=== PATIENT | male | born 1945 | race Caucasian/White ===

== ENCOUNTER → 2018-10-25 | Outpatient (CLI) | payer OTHER ==
[~2018-10-25] VITALS: Ht 185.4 cm; Wt 93.0 kg
[~2018-10-25] MED LIST: ALEVE220 MG PO; AZELASTINE137 MCG/0. NASAL; FENOFIBRATE160 MG PO; FLONASE 0.05%50 MCG NASAL; NORVASC5 MG PO; OMEPRAZOLE 20 M20 M1 PO
[2018-10-25 13:07] VITALS: BP 129/85
--- NOTE | 2018-10-25 14:33 | NUR ---
Pain Clinic Assessment: 1. History of Osteoarthritis: History of Rheumatoid Arthritis: 2. Height: 6 ft. 1 in. 185.4 cm. Weight: 205.0 lb. oz. 92.988 kg. Patient's BMI: 27.1 3. Vital Signs: BP: 129/85 Pulse: 70 Resp: 14 Temp: 02 Sat: 100 ECG Mon: 4. Pain Intensity: 2 5. Fall Risk: Dizziness: N Needs help standing or walking: N Fallen in the last 3 months: N Fall risk comments: 6. Patient on Blood Thinner: None 7. History of Hypertension: Y 8. Opioid Therapy greater than 6 weeks: N Opiate Contract Signed: 9. Risk Assessment Tool Provided: 10. Functional Assessment Tool: 11. Recreational Drug Use: Never Drug Type: Tobacco Use: Former Smoker Tobacco Type: Cigarettes Amount or Packs/day: 1/2- 1 1/2 How Many Years: 45 Alcohol Use: Yes Frequency: Weekly Quant: 2-3/WEEK
--- NOTE | 2018-11-05 07:40 | HPC ---
[facility] [place] [address] PAIN MANAGEMENT CONSULTATION Name: JEREMIAH WATTS Room #: REG JODIE Gallo.#: [id number] Admission: 10/25/18 ������������������ Attend Phys: Kwame Silvestre MD Discharge: ������������������ Date of : 45 Report #: [id number] THIS REPORT FOR: //name// CC: Vno Silvestre DATE OF SERVICE: 10/25/2018 CHIEF COMPLAINT: Bilateral leg pain and low back pain. HISTORY OF PRESENT ILLNESS: The patient is a pleasant, healthy fit appearing 73-year-old, who Dr. Garay has asked me to see today for low back pain with radiculopathy. Pain began about 6 months ago. He has had an episode of this in the past. This episode has been persistent now despite his exercise, which includes walking up to 3 miles and gentle Cruzito flexion exercises at home. He describes it as an aching in his back, radiating into the posterior thigh, made worse with activity at this point and is an aching sensation scored as a 6/10 today, maximum pain is a 9/10. MEDICATIONS: Amlodipine, fenofibrate, fluticasone, Astelin, omeprazole, Aleve. ALLERGIES: None. PAST MEDICAL HISTORY: Mild hypertension. He has some orthopedic injuries including right shoulder, which was treated with an arthroscopic surgery in 2012 and a right knee arthroscopic surgery in 2008. He has also had some left knee issues and will be following up with an orthopedic surgeon for that. Otherwise, he has been in excellent health his entire life. SOCIAL HISTORY: He denies use of tobacco, drinks alcohol 2-3 times a week in a social setting. He retired in 2014. He has remained physically active and independent. REVIEW OF SYSTEMS: Positive for some tinnitus, varicose veins and he has some reported sexual difficulties typical of a 73-year-old. PHYSICAL EXAMINATION: VITAL SIGNS: Blood pressure 129/85, heart rate 70, respirations 14, BMI is 27.1. He can independently move from sitting to standing position without difficulty. He does not need his arms to push up from the chair. He has good strength in his legs. Gait is normal. Examination of the spine reveals normal alignment, perhaps a slight levoscoliosis as reported by MRI. He has minimal pain with flexion, extension, rotation, and [id number] tilt. Straight leg raising is mildly positive bilaterally, reproducing some tightness in the back of the thighs in both the sitting and supine position, but nothing further. [facility] [address] [place] [address] PAIN MANAGEMENT CONSULTATION Name: JEREMIAH WATTS Room #: REG [facility]#: [id number] Admission: 10/25/18 ������������������ Attend Phys: Kwame Silvestre MD Discharge: ������������������ Date of : 45 Report #: [id number] Strength is intact in lower extremities. Deep tendon reflexes are 2+ knees and ankles. No asymmetry is noted. MRI scan is reviewed. He has spinal stenosis at L4-L5 at 8 mm. There is neural foraminal stenosis at L4-L5 and L5-S1. There is a mild spondylolisthesis reported at L5-S1 as well. IMPRESSION: Degenerative spine disease with lumbar radiculopathy involving L4, L5, S1. Most of his symptoms seem to be more L5-S1 related. There is moderate stenosis at L3-L4, severe stenosis at L4-L5. RECOMMENDATION: I have begun with an epidural steroid injection midline at L4-L5. If he gets a good response, this is be a favorable injection for future management possibilities. I would recommend following up in 1 month. If he gets limited improvement, I would consider bilateral transforaminal epidural injections at L4-L5. The cruz here is placement of medication within the lateral recess of the spinal canal in order to provide best relief of these bypassing nerve roots. Potential risks and benefits and the procedure were described in detail to the patient using models and charts. He had an ample opportunity to ask questions. PLAN: Epidural steroid injection L4-L5 under fluoroscopic guidance. He was taken to fluoroscopic suite, placed prone. Skin prepped with ChloraPrep. Skin anesthetized over L4-L5. A 20-gauge Tuohy epidural needle advanced first attempt into the epidural space with loss of resistance technique. There was no blood or CSF aspirated. 1 mL of Omnipaque injected. Good spread of dye observed into the epidural space followed by 3 mL of 0.5% lidocaine mixed with 80 mg of triamcinolone. He tolerated the procedure well and was observed for 45 minutes and discharged with a followup visit scheduled in the pain clinic in one month. ��������������������������������������������� <ELECTRONICALLY SIGNED> ���������������������������������������� By: Kwame Silvestre MD ��������������������������������������������� 11/05/18 0740 1624 2214 Kwame Silvestre MD /nt
== END | disposition home or self-care (01) ==
LOC: PAIN 06:52
DX: M51.16 Intervertebral disc disorders with radiculopathy, lumbar region (principal); M48.061 Spinal stenosis, lumbar region without neurogenic claudication; G89.29 Other chronic pain; I10 Essential (primary) hypertension; Z98.890 Other specified postprocedural states; Z79.899 Other long term (current) drug therapy; Z87.891 Personal history of nicotine dependence

== ENCOUNTER → 2018-11-29 | Outpatient (CLI) | payer OTHER ==
[~2018-11-29] VITALS: Ht 185.4 cm; Wt 93.6 kg
--- NOTE | ~2018-11-29 | HPC ---
[facility] [address] [place] [address] PAIN MANAGEMENT CONSULTATION Name: JEREMIAH WATTS Room #: REG JODIE [place].#: [id number] Admission: 11/29/18 ������������������ Attend Phys: Kwame Silvestre MD Discharge: ������������������ Date of : 45 Report #: [id number] THIS REPORT FOR: //name// CC: Von Silvestre DATE OF SERVICE: 11/29/2018 Followup visit for lumbar radiculopathy. The patient returns to pain clinic today and is 80% better after initial epidural injection on 10/25/2018. It has now been over a month and we are getting into 6-8 weeks. We had a lengthy discussion today about his response. I spent about 20 minutes with him discussing his underlying problem; the use of an epidural injection as a pain-relieving tool, not as a cure and our philosophy of using injections periodically, both in a preemptive role as well as a treatment role for severe episodes of persistent pain. With this in mind, the epidural injection might be useful over many years. We discussed the Medicare guideline which states no more than 3 injections in a 6-month period of time. I shared with him that many of our patients get by with a single injection per year or less, some taking up to 4 a year, but it is rare to go past that in my opinion. If he continues to see good improvement, this is a tool that we can utilize going forward, particularly in light of the fact that we save x-ray pictures to show where I have injected him previously. We can often have reproducible effects by injecting him in the same location. On a PQRS review, it is positive for some arthritis. He has had arthroscopic surgery of his knees. His BMI is 27.2. He remains active. He is on no blood-thinning medications, but is under treatment by Dr. Garay for hypertension. MEDICATIONS: Have been reviewed and reconciled from the electronic medical record. He has not taken opioid medication, but has completed an opioid risk tool and would be at a low risk. SOCIAL HISTORY: He denies use of tobacco, but drinks alcohol socially. PHYSICAL EXAMINATION: GENERAL: Pleasant gentleman. VITAL SIGNS: Blood pressure 127/89, heart rate 71. He is 6 feet 1 inch, 206 pounds. MUSCULOSKELETAL: He moves easily from sitting to standing position, ambulates [facility] [address] [place] [address] PAIN MANAGEMENT CONSULTATION Name: JEREMIAH WATTS Room #: REG JODIE Bret#: [id number] Admission: 11/29/18 ������������������ Attend Phys: Kwame Silvestre MD Discharge: ������������������ Date of : 45 Report #: [id number] without antalgic features. IMPRESSION: Chronic low back pain with radiculopathy, much improved following single epidural injection. PLAN: Follow up as needed. ��������������������������������������������� ���������������������������������������� By: ��������������������������������������������� 1520 0216 Kwame Silvestre MD /nt
[2018-11-29 13:51] VITALS: BP 127/89
--- NOTE | 2018-11-29 14:00 | NUR ---
Pain Clinic Assessment: 1. History of Osteoarthritis: Not Applicable History of Rheumatoid Arthritis: Not Applicable 2. Height: 6 ft. 1 in. 185.4 cm. Weight: 206.4 lb. oz. 93.623 kg. Patient's BMI: 27.2 3. Vital Signs: BP: 127/89 Pulse: 71 Resp: 14 Temp: 02 Sat: 97 ECG Mon: 4. Pain Intensity: 0 5. Fall Risk: Dizziness: N Needs help standing or walking: N Fallen in the last 3 months: N Fall risk comments: 6. Patient on Blood Thinner: None 7. History of Hypertension: Y 8. Opioid Therapy greater than 6 weeks: N Opiate Contract Signed: 9. Risk Assessment Tool Provided: 10. Functional Assessment Tool: 11. Recreational Drug Use: Never Drug Type: Tobacco Use: Former Smoker Tobacco Type: Amount or Packs/day: How Many Years: Alcohol Use: Yes Frequency: Weekly Quant: 1
== END ==
LOC: PAIN 07:04
DX: M54.16 Radiculopathy, lumbar region (principal); Z79.899 Other long term (current) drug therapy

== ENCOUNTER → 2019-03-21 | Outpatient (CLI) | payer OTHER ==
[~2019-03-21] VITALS: Ht 185.4 cm; Wt 95.3 kg
--- NOTE | ~2019-03-21 | HPC ---
[facility] [place] [address] PAIN MANAGEMENT CONSULTATION Name: JEREMIAH WATTS Room #: REG [facility].#: [id number] Admission: 03/21/19 ������������������ Attend Phys: Kwame Silvestre MD Discharge: ������������������ Date of : 45 Report #: [id number] THIS REPORT FOR: //name// CC: Von Silvestre DATE OF SERVICE: 03/21/2019 Followup visit for lumbar radiculopathy. The patient returns to pain clinic today for repeat epidural injection. He had substantial improvement after his last injection in October. He and his will be taking a trip beginning tomorrow. They are leaving to travel up to [place]. The long ride in a car may aggravate his radiculopathy, and he would like to get an epidural before his departure. He has spinal stenosis at L4-L5. We reviewed the pathology. His good response suggests another injection may be very useful in the setting. Pain is mild at rest 2/10, but can become more severe, particularly with activity. He will be having a lot of that on this trip. PQRS REVIEW: 1. No history of osteoarthritis. 2. BMI 27.2. 3. VITAL SIGNS: Blood pressure 127/89, heart rate 71, respirations 14, O2 sat 97. 4. Pain intensity at rest is 0-2, increasing to a 5 with activity. 5. He is not a fall risk. 6. No blood thinners. 7. History of hypertension, under treatment. All medications were reviewed and reconciled. He is on amlodipine. 8. He is not on opioids. 9. No history of tobacco, but he drinks alcohol in social setting once or twice a week. PHYSICAL EXAMINATION: He moves easily from sitting to standing position, but has some mild antalgic features to his gait. Slight decrease in range of motion across the lumbosacral segment. Straight leg raising reproduces some pain radiating into both legs in the L5-S1 distribution. IMPRESSION: Lumbar radiculopathy secondary to spinal stenosis. RECOMMENDATIONS: Repeat epidural injection under fluoroscopic guidance. [facility] [address] [place] [address] PAIN MANAGEMENT CONSULTATION Name: JEREMIAH WATTS Room #: REG [facility]#: [id number] Admission: 03/21/19 ������������������ Attend Phys: Kwame Silvestre MD Discharge: ������������������ Date of : 45 Report #: [id number] PROCEDURE: He was taken to fluoroscopic suite, placed prone, skin prepped with ChloraPrep. Skin anesthetized over the L4-L5 interspace. A 20-gauge Tuohy epidural needle advanced in the epidural space with loss of resistance technique. No blood or CSF was aspirated. A 1 mL of Omnipaque was injected. Good spread of dye observed into the epidural space, this was then followed by 3 mL of 0.5% lidocaine mixed with 80 mg of triamcinolone. He tolerated the procedure well and was observed for 45 minutes and discharged. Follow up as needed. ��������������������������������������������� ���������������������������������������� By: ��������������������������������������������� 1211 1238 Kwame Silvestre MD /nt
[2019-03-21 09:18] VITALS: BP 134/87
--- NOTE | 2019-03-21 09:31 | NUR ---
Pain Clinic Assessment: 1. History of Osteoarthritis: knees History of Rheumatoid Arthritis: Not Applicable 2. Height: 6 ft. 1 in. 185.4 cm. Weight: 210.0 lb. oz. 95.256 kg. Patient's BMI: 27.7 3. Vital Signs: BP: 134/87 Pulse: 65 Resp: 14 Temp: 02 Sat: 98 ECG Mon: 4. Pain Intensity: 2 5. Fall Risk: Dizziness: N Needs help standing or walking: N Fallen in the last 3 months: N Fall risk comments: 6. Patient on Blood Thinner: None 7. History of Hypertension: Y 8. Opioid Therapy greater than 6 weeks: N Opiate Contract Signed: 9. Risk Assessment Tool Provided: low-o 10. Functional Assessment Tool: 11. Recreational Drug Use: Never Drug Type: Tobacco Use: Former Smoker Tobacco Type: Amount or Packs/day: How Many Years: Alcohol Use: Yes Frequency: Weekly Quant: 2 beers
== END | disposition home or self-care (01) ==
LOC: PAIN 08:59
DX: M54.16 Radiculopathy, lumbar region (principal); M48.061 Spinal stenosis, lumbar region without neurogenic claudication; I10 Essential (primary) hypertension; Z87.891 Personal history of nicotine dependence; Z79.899 Other long term (current) drug therapy

== ENCOUNTER → 2019-07-11 | Outpatient (CLI) | payer OTHER ==
[~2019-07-11] VITALS: Ht 185.4 cm; Wt 96.4 kg
[~2019-07-11] MED LIST changes: +LIPITOR10 MG PO
--- NOTE | ~2019-07-11 | HPC ---
[facility] [address] [address] PAIN MANAGEMENT CONSULTATION Name: JEREMIAH WATTS Room #: REG JODIE Gallo.#: [id number] Admission: 07/11/19 Attend Phys: Kwame Silvestre MD Discharge: Date of : 45 Report #: [id number] THIS REPORT FOR: //name// CC: Von Silvestre DATE OF SERVICE: 07/11/2019 Followup visit for lumbar radiculopathy. The patient returns today for repeat epidural injection. His last injection was performed in March. He has had excellent response to both of his injections. In March after his injection, he and his drove to [place] where they had a hiking vacation. He returned and found that his pain was not quite as good for as long as the injection in November. It may have been due to the long car ride. He was able to do his hiking without too much difficulty. Today, his pain is not too bad, but it has been increasing some and he is here today to repeat the injection. Injection was performed at L4-L5. Symptoms have previously been a bit more to the left and I have injected him at that level. He has spinal stenosis at L4-L5. PQRS REVIEW: Positive for mild arthritis, particularly of the knee where he has had some surgery. BMI is 28.1, blood pressure 140/91, heart rate 78, respirations 16. He is not a fall risk, is on no blood thinning medications. Dr. Garay treats him for hypertension. He is not on opioid medications, completed an opioid risk tool scoring 0 and his functional assessment score is quite good at 22/70 suggesting minimal impact of his pain on his day-to-day activities. SOCIAL HISTORY: Denies use of tobacco and drinks alcohol once or twice weekly. IMPRESSION: Chronic low back pain with radiculopathy, which has responded nicely to epidural injections. RECOMMENDATIONS: Repeat epidural injection under fluoroscopic guidance. DESCRIPTION OF PROCEDURE: He was taken to fluoroscopic suite for the injection where he was placed prone, skin prepped with ChloraPrep. Skin anesthetized over the L4-L5 interspace. A 20-gauge Tuohy epidural needle advanced first attempt in the epidural space with loss of resistance technique. There was no blood or CSF aspirated. A 1 mL of Omnipaque injected. Good spread of dye observed into the epidural space. This was then followed by 3 mL of 0.5% lidocaine mixed with [facility] [address] [place] [address] PAIN MANAGEMENT CONSULTATION Name: JEREMIAH WATTS Room #: REG [facility].#: [id number] Admission: 07/11/19 Attend Phys: Kwame Silvestre MD Discharge: Date of : 45 Report #: [id number] 80 mg of triamcinolone. He tolerated the procedure well. He was observed for 45 minutes and discharged. There were no complications. Follow up as needed. By: [id number] MD abigail Davis
[2019-07-11 12:56] VITALS: BP 140/91
--- NOTE | 2019-07-11 13:07 | NUR ---
Pain Clinic Assessment: 1. History of Osteoarthritis: knees History of Rheumatoid Arthritis: Not Applicable 2. Height: 6 ft. 1 in. 185.4 cm. Weight: 212.6 lb. oz. 96.435 kg. Patient's BMI: 28.1 3. Vital Signs: BP: 140/91 Pulse: 78 Resp: 16 Temp: 02 Sat: 100 ECG Mon: 4. Pain Intensity: 0 5. Fall Risk: Dizziness: N Needs help standing or walking: N Fallen in the last 3 months: N Fall risk comments: 6. Patient on Blood Thinner: None 7. History of Hypertension: Y 8. Opioid Therapy greater than 6 weeks: N Opiate Contract Signed: 9. Risk Assessment Tool Provided: low-o 10. Functional Assessment Tool: 11. Recreational Drug Use: Never Drug Type: Tobacco Use: Former Smoker Tobacco Type: Amount or Packs/day: How Many Years: Alcohol Use: Yes Frequency: Weekly Quant: 1-2
== END | disposition home or self-care (01) ==
LOC: PAIN 06:54
DX: M54.16 Radiculopathy, lumbar region (principal); G89.29 Other chronic pain; M19.90 Unspecified osteoarthritis, unspecified site; I10 Essential (primary) hypertension; Z87.891 Personal history of nicotine dependence; Z79.899 Other long term (current) drug therapy

== ENCOUNTER → 2019-08-26 | Outpatient (CLI) | payer OTHER ==
[~2019-08-26] VITALS: Ht 185.4 cm; Wt 95.7 kg
[2019-08-26 13:36] VITALS: BP 118/84
--- NOTE | 2019-08-26 13:47 | NUR ---
Pain Clinic Assessment: 1. History of Osteoarthritis: knees History of Rheumatoid Arthritis: Not Applicable 2. Height: 6 ft. 1 in. 185.4 cm. Weight: 211.0 lb. oz. 95.709 kg. Patient's BMI: 27.8 3. Vital Signs: BP: 118/84 Pulse: 78 Resp: 16 Temp: 02 Sat: 97 ECG Mon: 4. Pain Intensity: 0 5. Fall Risk: Dizziness: N Needs help standing or walking: N Fallen in the last 3 months: Y Fall risk comments: 6. Patient on Blood Thinner: None 7. History of Hypertension: Y 8. Opioid Therapy greater than 6 weeks: N Opiate Contract Signed: 9. Risk Assessment Tool Provided: low-o 10. Functional Assessment Tool: 11. Recreational Drug Use: Never Drug Type: Tobacco Use: Former Smoker Tobacco Type: Amount or Packs/day: How Many Years: Alcohol Use: Yes Frequency: Weekly Quant: COUPLE BEERS
--- NOTE | 2019-09-02 12:21 | HPC ---
[facility] [address] [place] [address] PAIN MANAGEMENT CONSULTATION Name: JEREMIAH WATTS Room #: REG JODIE Salv[facility].#: [id number] Admission: 08/26/19 Attend Phys: Kwame Silvestre MD Discharge: Date of : 45 Report #: [id number] THIS REPORT FOR: //name// CC: Von Silvestre DATE OF SERVICE: 08/26/2019 Followup visit for lumbar radiculopathy. The patient returns to pain clinic today for a second epidural injection. He continues to respond favorably to his epidural injections, but today he is left with some pain that persists in the L5-S1 distribution with cramping. He says he feels as though he is constantly on the verge of leg cramps. This is limited his walking. I believe that this is a manifestation of neurogenic claudication related to his spinal stenosis. He has fairly severe stenosis at L4-L5, which involved the descending L5 nerve roots bilaterally. We injected him slightly above the stenosis at last visit. I have recommended that we perform the injection today below. He was seen just 1 month ago. PQRS review from that date is unchanged. PHYSICAL EXAMINATION: Pleasant 74-year-old moves independently from sitting to standing position. His gait is nonantalgic, but u can tell he has tightness and cramping in his calves. Straight leg raising is negative. Sensation is normal. Mild weakness is noted bilaterally in the lower extremities. IMPRESSION: Lumbar radiculopathy, which has responded favorably to epidural injections over the years. RECOMMENDATION: Repeat and proceed with epidural injection today. PROCEDURE: Preformed L5-S1. He was taken to fluoroscopic suite, placed prone, skin prepped with ChloraPrep. Skin was anesthetized over the L5-S1 interspace. A 20-gauge Tuohy epidural needle advanced on the first attempt into the epidural space with loss of resistance. There was no blood or CSF aspirated. An excellent epidurogram was achieved using 1 mL of Omnipaque. It was followed by 3 mL of 0.5% lidocaine mixed with 60 mg of triamcinolone. He tolerated the procedure well. There were no complications. He was observed in recovery room and discharged with a pain [facility] [address] [place] [address] PAIN MANAGEMENT CONSULTATION Name: JEREMIAH WATTS Room #: [facility].#: [id number] Admission: 08/26/19 Attend Phys: Kwame Silvestre MD Discharge: Date of : 45 Report #: [id number] score of 0. We will see how he does with the cramps. We have also suggested quinine and hydration to try and treat these symptoms. <ELECTRONICALLY SIGNED> By: Kwame Silvestre MD 09/02/19 1221 1700 2317 Kwame Silvestre MD /nt
== END | disposition home or self-care (01) ==
LOC: PAIN 06:53
DX: M54.16 Radiculopathy, lumbar region (principal); G89.29 Other chronic pain; Z79.899 Other long term (current) drug therapy; Z98.890 Other specified postprocedural states; Z87.891 Personal history of nicotine dependence

== ENCOUNTER → 2019-11-21 | Outpatient (CLI) | payer OTHER ==
[~2019-11-21] VITALS: Ht 185.4 cm; Wt 95.8 kg
--- NOTE | ~2019-11-21 | HPC ---
[facility] [place] [address] [place] [address] PAIN MANAGEMENT CONSULTATION Name: JEREMIAH WATTS Room #: REG JODIE [place].#: [id number] Admission: 11/21/19 Attend Phys: Kwame Silvestre MD Discharge: Date of : 45 Report #: [id number] THIS REPORT FOR: cc: Von Garay MD,Von Silvestre,Kwame Abdi MD ~ CC: Von Silvestre DATE OF SERVICE: 11/21/2019 Followup visit for persistent lumbar radiculopathy. The patient returns to pain clinic today to discuss treatment. He has spinal stenosis and has consistent pain with radiculopathy and neurogenic claudication. Pain is bilateral in his legs, radiates through the thighs and calf, at times through the hamstring, it can be variable. The symptoms are typically worsened by standing and weightbearing. He has received some relief from epidural injections. I have injected him at 2 locations. I have injected at L4-L5 above the most significant stenosis and last time below at L5-S1. He felt that the initial injection was more favorable and would like another injection. We spent some time today discussing other options. PQRS REVIEW: Positive for osteoarthritis of the knees bilaterally. BMI 27.9. Blood pressure 138/95, heart rate 72, respirations 18, O2 sat 95. Pain intensity is 5-6/10. He is not a fall risk. Denies use of blood thinners takes medication for hypertension prescribed by Dr. Garay and I reviewed those medications with him. He remains on amlodipine. He takes naproxen for pain, does not take opioids and is not on an opioid agreement. He did complete an opioid risk tool as all our patients do and his score was 0. Functional assessment score is not bad at 22/70 suggesting minimal to moderate impact of pain on his day-to-day activities. Denies use of tobacco and alcohol, has used only sparingly. PHYSICAL EXAMINATION: GENERAL: Pleasant gentleman, moves independently from sitting to standing position, ambulates with some mild antalgic features. VITAL SIGNS: As noted above. There is mild tenderness across the low back. A bilateral straight leg raising discomfort is noted with tightness in his hamstrings and calves. Sensation is diminished slightly to touch in the lower part of the leg. There is no focal weakness. Deep tendon reflexes are absent. MRI scan is reviewed by report and I have asked him to bring to the clinic his actual films, which we will look at to determine [place] [address] PAIN MANAGEMENT CONSULTATION Name: JEREMIAH WATTS Room #: REG [facility] [place].#: [id number] Admission: 11/21/19 Attend Phys: Kwame Silvestre MD Discharge: Date of : 45 Report #: [id number] also to consider him as a possible MILD candidate. His preauthorization is being sought at this time and I will see him back for the injection and further consultation when we have the films to review. By: 1445 1514 Kwame Silvestre MD /nt
[2019-11-21 12:39] VITALS: BP 138/95
--- NOTE | 2019-11-21 12:44 | NUR ---
Pain Clinic Assessment: 1. History of Osteoarthritis: knees History of Rheumatoid Arthritis: Not Applicable 2. Height: 6 ft. 1 in. 185.4 cm. Weight: 211.2 lb. oz. 95.800 kg. Patient's BMI: 27.9 3. Vital Signs: BP: 138/95 Pulse: 72 Resp: 18 Temp: 02 Sat: 95 ECG Mon: 4. Pain Intensity: 5-6 5. Fall Risk: Dizziness: N Needs help standing or walking: N Fallen in the last 3 months: N Fall risk comments: 6. Patient on Blood Thinner: None 7. History of Hypertension: Y 8. Opioid Therapy greater than 6 weeks: N Opiate Contract Signed: 9. Risk Assessment Tool Provided: low-o 10. Functional Assessment Tool: 11. Recreational Drug Use: Never Drug Type: Tobacco Use: Former Smoker Tobacco Type: Amount or Packs/day: How Many Years: Alcohol Use: Yes Frequency: Quant:
== END ==
LOC: PAIN 11-20 13:00
DX: M54.16 Radiculopathy, lumbar region (principal)

== ENCOUNTER → 2019-11-28 | Outpatient (CLI) | payer OTHER ==
[~2019-11-28] VITALS: Ht 185.4 cm; Wt 95.8 kg
--- NOTE | ~2019-11-28 | HPC ---
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 Visit for procedure in review of MRI. I reviewed the patient's MRI with him today in some detail. We looked at the images and discussed his multilevel spinal stenosis. There is a significant component of ligamentum flavum thickening and he may well be a candidate for MILD. We discussed referral to Dr. Vasyl Reynolds if he needs to go that direction in the future. In the meantime, we will try another epidural injection at L3-L4 based upon what we seen today. The MRI suggests that would be the best location for treatment and if he responds favorably to this, then I would hold off on a referral for MILD until we need to go that direction. IMPRESSION: Neurogenic claudication with bilateral radiculopathy. PROCEDURE: L3-L4 epidural injection under fluoroscopic guidance. DESCRIPTION OF PROCEDURE: He was taken to fluoroscopic suite, placed prone, skin prepped with ChloraPrep. Skin anesthetized over the L3-L4 interspace. A 20-gauge Tuohy epidural needle advanced first attempt into the epidural space with loss of resistance technique. There was no blood or CSF aspirated. A 1 mL of Omnipaque was injected. Good spread of dye observed into the epidural space followed by 3 mL of 0.5% lidocaine mixed with 80 mg triamcinolone. He tolerated the procedure well and was observed for 45 minutes and discharged. Follow up as needed. No medications were ordered. By: [id number] Kwame Silvestre MD /nt
[2019-11-28 09:28] VITALS: BP 114/72
--- NOTE | 2019-11-28 09:33 | NUR ---
Pain Clinic Assessment: 1. History of Osteoarthritis: knees History of Rheumatoid Arthritis: Not Applicable 2. Height: 6 ft. 1 in. 185.4 cm. Weight: 211.2 lb. oz. 95.800 kg. Patient's BMI: 27.9 3. Vital Signs: BP: 114/72 Pulse: 82 Resp: 16 Temp: 02 Sat: 100 ECG Mon: 4. Pain Intensity: 6 5. Fall Risk: Dizziness: N Needs help standing or walking: N Fallen in the last 3 months: N Fall risk comments: 6. Patient on Blood Thinner: None 7. History of Hypertension: Y 8. Opioid Therapy greater than 6 weeks: N Opiate Contract Signed: 9. Risk Assessment Tool Provided: low-o 10. Functional Assessment Tool: 11. Recreational Drug Use: Never Drug Type: Tobacco Use: Former Smoker Tobacco Type: Amount or Packs/day: How Many Years: Alcohol Use: Yes Frequency: Weekly Quant: 1-2
== END | disposition home or self-care (01) ==
LOC: PAIN 06:48
DX: M54.16 Radiculopathy, lumbar region (principal); M48.062 Spinal stenosis, lumbar region with neurogenic claudication; G89.29 Other chronic pain; Z98.890 Other specified postprocedural states; Z79.899 Other long term (current) drug therapy